=== PATIENT | female | born 1960 | race Hispanic/Latino ===

== ENCOUNTER → 2019-12-15 | Day surgery (SDC) | payer BC ==
[~2019-12-15] MED LIST: LOSARTAN POTAS100 MG PO; METFORMIN HCL500 MG PO; MIDAZOLAM HCL 2 MG/2 ML VIAL ONE; OMEPRAZOLE40 MG PO; PROAIR HFA INH8.5 GM INH; VITAMIN D34000 UNIT PO
--- OUTSIDE RECORDS SUMMARY | 2019-12-15 13:04 | XMS REPORT ---
Author [facility] Address Unknown Phone Unavailable Care Team Providers Care Platform Inspector Name Role Phone Unavailable Unavailable Payers Payer Name Policy Type Policy Number Effective Date Expiration Date Problems This patient has no known problems. Allergies, Adverse Reactions, Alerts Allergy Name Allergy Type Status Severity Reaction(s) Onset Date Inactive Date Treating Clinician Comments No Known Allergies DA Active U 2018-10-15 00:00:00 No Known Allergies DA Active U 2013-03-24 00:00:00 Medications This patient has no known medications. Results Test Description Test Time Test Comments Text Results Atomic Results Result Comments SCR MAMM BILATERAL ASAD CAD DIGITAL 2019-09-14 08:04:07 - SCR MAMM BILATERAL ASAD CAD DIGITALBILATERAL DIGITAL SCREENING MAMMOGRAM 3D/2D WITH CAD: 08/22/2019CLINICAL: Asymptomatic. Digital breast tomosynthesis was performed in addition to routine CC and MLO views. Current mammographic images were evaluated by either a TASS M-Vu or a [employer] ImageChecker CAD (computer aided detection system). Comparison is made to exams dated 12/06/2015 mammogram, [facility] [place], and 11/10/2008 mammogram - [facility]-. There are scattered fibroglandular tissues in both breasts. No suspicious mass, architectural distortion, malignant type calcification, or lymph node abnormality detected. Breast architecture is stable compared to prior exams.IMPRESSION: NEGATIVEThere is no mammographic evidence of malignancy. Resume annual screening mammography in one year. Derek Hess M.D. qn/penrad:09/14/2019 08:04:07 Auto Body Mechanic Apprentice: Fabienne SCANLON, [facility]-FWletter sent: BIRADS 1-2 Normal Mammogram BI-RADS: 1 Negative
[2019-12-15 16:15] VITALS: BP 118/79
== END | disposition home or self-care (01) ==
LOC: OR 12:55
PROVIDERS: ATTEND Internal Medicine Gastroenterology
DX: Z12.11 Encounter for screening for malignant neoplasm of colon (principal); D12.4 Benign neoplasm of descending colon; D12.8 Benign neoplasm of rectum; K57.30 Diverticulosis of large intestine without perforation or abscess without bleeding; K21.9 Gastro-esophageal reflux disease without esophagitis; K44.9 Diaphragmatic hernia without obstruction or gangrene; K64.8 Other hemorrhoids; G47.33 Obstructive sleep apnea (adult) (pediatric); I10 Essential (primary) hypertension; E78.5 Hyperlipidemia, unspecified; E11.9 Type 2 diabetes mellitus without complications; Z01.810 Encounter for preprocedural cardiovascular examination; Z79.899 Other long term (current) drug therapy; Z79.84 Long term (current) use of oral hypoglycemic drugs; Z68.36 Body mass index [BMI] 36.0-36.9, adult; Z86.2 Personal history of diseases of the blood and blood-forming organs and certain disorders involving the immune mechanism; Z86.19 Personal history of other infectious and parasitic diseases; Z85.72 Personal history of non-Hodgkin lymphomas
CPT/HCPCS: 45384; 93005; J2250; 45378